=== PATIENT | female | born 1980 | race Caucasian/White ===

== ENCOUNTER 2016-08-11 12:57 | Outpatient (CLI) | payer OTHER ==
--- NOTE | 2016-08-11 14:06 | DIAGNOSTIC IMAGING REPORT ---
PROCEDURE: US OB 1ST TRIMESTER W/TRANSVAG INDICATION: DATING TECHNIQUE: Weir scale, color, and spectral Doppler transabdominal sonographic images of the first trimester gravid uterus were obtained. COMPARISON: None. FINDINGS: TRANSABDOMINAL SCANS: The gravid uterus is anteverted in position and contains a fundal gestational sac which measures 2.3 cm and corresponds to 7 weeks and 4 days No perigestational hemorrhage. The cervix is closed. A pole with an average crown-rump length of 1.1 cm which corresponds to 7 weeks and 1 day is present. There is detectable cardiac activity in the fetus in a rate of 115 beats per minute. A yolk sac was visible. Maternal ovaries appear normal with a corpus luteum cyst visualized left ovary. No free pelvic fluid. IMPRESSION: 1. Single living intrauterine with gestational age of 7 weeks and 4 days and estimated due date of 03/26/2017 2. Closed cervix and no perigestational hemorrhage.
== END 2016-08-11 23:00 ==
LOC: US SRH 12:57
DX: Z34.01 Encounter for supervision of normal first pregnancy, first trimester (principal); Z3A.01 Less than 8 weeks gestation of pregnancy

== ENCOUNTER 2016-08-20 14:33 | Outpatient (CLI) | payer OTHER ==
--- NOTE | 2016-08-20 16:13 | DIAGNOSTIC IMAGING REPORT ---
PROCEDURE: US OB 1ST TRIMESTER W/TRANSVAG INDICATION: VIABILITY TECHNIQUE: Weir scale, color, and spectral Doppler transabdominal sonographic images of the first trimester gravid uterus were obtained. COMPARISON: OB ultrasound 08/11/1969 FINDINGS: TRANSABDOMINAL SCANS: The gravid uterus is anteverted in position and contains a fundal gestational sac with a moderate residual response. There is an anterior and lower uterine segment perigestational bleed that measures 2.6 x 1.9 cm. There is also a fundal perigestational bleed that measures 2.4 x 2.2 cm. The cervix is closed. A pole with an average crown-rump length of 2.1 cm is present. There is detectable cardiac activity in the fetus in a rate of 150 beats per minute. Maternal ovaries appear normal with a corpus luteum cyst visualized left ovary. No free pelvic fluid. IMPRESSION: 1. Single living intrauterine with gestational age of 8 weeks and 5 days and estimated due date of 03/27/2017 2. Anterior and lower uterine segment perigestational bleed that measures 2.6 x 1.9 cm. 3. Fundal perigestational bleed that measures 2.4 x 2.2 cm.
== END 2016-08-20 23:00 ==
LOC: US SRH 14:33
DX: Z34.91 Encounter for supervision of normal pregnancy, unspecified, first trimester (principal); Z3A.08 8 weeks gestation of pregnancy

== ENCOUNTER 2016-09-05 20:27 | Emergency (ER) | payer OTHER ==
--- NOTE | 2016-09-05 22:20 | ED CLINICAL REPORT ---
Clinical Report - Physicians/Mid Levels [facility] [address] [place] [address] 09/05/2016 20:28 Patient: EVANS DOMINGO Time Seen: 20:43; initial patient contact, initial documentation, patient care assumed. Arrived- By private vehicle. Historian- patient. HISTORY OF PRESENT ILLNESS Chief Complaint: PELVIC PAIN. This started yesterday, still present and now gone (bleeding gone, still has cramps). The symptoms are described as mild. The patient has had moderate, crampy pelvic pain, described as "pain", with vaginal bleeding. She has had abnormal bleeding described as spotting. No abdominal pain, vaginal pain, low back pain, flank pain or vaginal discharge. No vaginal itching, pain with urination, urinary frequency, urgency of urination or hematuria. Sexually active. Does not use control measures. Currently . G 2. P 1. Receiving care. Similar symptoms previously: Once, worse. ( had bleeding during with other ). Recent medical care: The patient was seen recently in a clinic. ( saw automotive general manager, everything ok so far, and US was normal). REVIEW OF SYSTEMS No nausea, vomiting, diarrhea, fever or difficulty breathing. No chest pain. All systems otherwise negative, except as recorded above. PAST HISTORY Negative. SOCIAL HISTORY Heavy tobacco smoker. Occasional alcohol use. No drug use. No recent travel. Is a local resident. ADDITIONAL NOTES The nursing notes have been reviewed with agreement regarding the chief complaint, HPI, ROS, PMH and patient medications and allergies. PHYSICAL EXAM Vital Signs: 09/05/2016 20:41 BP: 133/85. HR: 97. RR: 16. O2 saturation: 100%. Temp: 97.8 F. Have been reviewed as normal and appear to be correct. Appearance: Alert. Oriented X3. No acute distress. HEENT: Normal external inspection. ENT: Pharynx normal. Neck: Neck supple. CVS: Heart sounds normal. Respiratory: No respiratory distress. Breath sounds normal. Chest nontender. Abdomen: Soft and nontender. Bowel sounds normal. No organomegaly. No mass. Back: Normal external inspection. : External inspection normal. Speculum exam normal. Bimanual exam normal. Skin: Skin warm and dry. Normal skin color. No rash. Normal skin turgor. Extremities: Extremities nontender. No lower extremity edema. Neuro: Oriented X 3. Mood/affect normal. No motor deficit. No sensory deficit. LABS, X-RAYS, AND EKG Pelvic Sonogram: A single gestation intrauterine (11w1d) is present. Single focus of cardiac activity present (150's). An ovarian cyst is present. No acute disease. verbal report by US Castro. Interpretation time: 22:16. Laboratory Tests: UA-Culture if indicated: (JOANIE: 09/05/2016 20:40) ( MsgRcvd 09/05/2016 21:30) Final results Test Result Flag Units (Reference) URINE COLOR YELLOW URINE APPEARANCE CLEAR URINE GLUCOSE NEGATIVE (NEGATIVE) URINE BILIRUBIN NEGATIVE (NEGATIVE) URINE KETONE TRACE (NEGATIVE) URINE SPECIFIC GRAVITY >= 1.030 (1.010-1.030) URINE PH 6.0 (5.0-8.0) URINE PROTEIN NEGATIVE (NEGATIVE) URINE UROBILINOGEN 0.2 EU/dL (0.2-1.0) URINE NITRITE POSITIVE (NEGATIVE) URINE BLOOD TRACE-INTACT (NEGATIVE) URINE LEUK ESTERASE NEGATIVE (NEGATIVE) URINE RBC 0-1 rbc/hpf (0-1) URINE WBC 0-1 wbc/hpf (0-1) URINE EPITHELIAL CELLS 1-3 EPI/hpf (0-5) URINE BACTERIA FEW (1+) (NONE SEEN) URINE COMMENT CULTURE INDICATED URINE CULTURES ARE SET-UP BASED ON THE FOLLOWING CRITERIA:POSITIVE NITRITEPOSITIVE LEUKOCYTE ESTERASEGREATER THAN 10 WHITE BLOOD CELLSMODERATE (2+) OR GREATER BACTERIA CBC w Diff: (JOANIE: 09/05/2016 21:12) ( MsgRcvd 09/05/2016 21:25) Final results Test Result Flag Units (Reference) WHITE BLOOD COUNT 11.4 K/uL (4.5-11.5) RED BLOOD COUNT 4.38 M/uL (4.00-5.20) HEMOGLOBIN 13.4 gm/dL (12.0-16.0) HEMATOCRIT 40.4 % (36.0-46.0) MEAN CELL VOLUME 92 fL (80-100) MEAN CORPUSCULAR HGB 31 pg (26-34) MEAN CORPUSCULAR HGB CONC 33 g/dL (31-37) RED CELL DISTRIBUTION WIDTH 12.7 % (11.6-14.8) PLATELET COUNT 256 K/uL (150-400) NEUTROPHIL % 61.3 % (50-75) LYMPH % 30.3 % (25-40) MONO % 7.3 % (3-14) EOSINOPHIL % 0.9 % (0-4) BASOPHIL % 0.2 % (0-2) CMP: (JOANIE: 09/05/2016 21:12) ( MsgRcvd 09/05/2016 21:57) Final results Test Result Flag Units (Reference) GLUCOSE 100 mg/dL (70-110) BUN 8 mg/dL (7-18) CREATININE 0.5 L mg/dL (0.6-1.3) Estimated GFR >60 mL/min Estimated GFR- >60 mL/min Note: Persistent reduction over 3 months in eGFR<60 mL/min/1.73 m2 defines CKD. Patients with eGFR values>=60 mL/min/1.73 m2 may also have CKD if evidence ofpersistent proteinuria. Additional information may be foundat www.kidney.org. SODIUM 141 mmol/L (136-145) POTASSIUM 3.8 mmol/L (3.5-5.1) CHLORIDE 105 mmol/L (98-107) CARBON DIOXIDE 26 mmol/L (21-32) CALCIUM 9.0 mg/dL (8.5-10.1) TOTAL PROTEIN 7.5 g/dL (6.4-8.2) ALBUMIN 3.5 g/dL (3.3-5.0) BILIRUBIN, TOTAL 0.2 mg/dL (0.0-1.0) ALKALINE PHOSPHATASE 58 U/L (46-116) AST (SGOT) 14 L U/L (15-37) ALT (SGPT) 31 U/L (12-78) BETA HCG, QUANTITATIVE 5 mIU/mL REFERENCE RANGE:Adult Males: <2 mIU/mLNon- Females: <6 mIU/mL Females:Approximate Approximate hCGGestational Age Range (mIU/mL) 0-1 week 0-501-2 weeks 40-3002-3 weeks 100-33366-1 weeks 500-35701-9 months 5,000-200,0002-3 months 10,000-100,0002nd trimester 3,000-50,0003rd trimester 1,000-50,000 Type & Rh: (JOANIE: 09/05/2016 21:12) ( MsgRcvd 09/05/2016 21:33) Final results Test Result Flag Units (Reference) PATIENT BLOOD TYPE O Negative . PROGRESS AND PROCEDURES Patient counseled in person regarding the patient's stable condition, test results and diagnosis. 22:17. Differential Diagnosis: I considered vaginitis, vaginal polyps, vaginal lesion, vaginal cancer, vulvar infection, ovarian cysts, pelvic inflammatory disease, endometriosis, uterine fibroids, ectopic , threatened and dysfunctional uterine bleeding as a possible cause of vaginal bleeding in this patient. This is a partial list of diagnoses considered. Above considerations are based on history, physical exam, reassessment, laboratory data and other information. Differential diagnosis was discussed with patient. Disposition: Discharged home in good and improved condition (22:20). Condition: good and stable. CLINICAL IMPRESSION Acute pelvic pain. Dysfunctional uterine bleeding. INSTRUCTIONS Warnings: GENERAL WARNINGS: Return or contact your physician immediately if your condition worsens or changes unexpectedly, if not improving as expected, or if other problems arise. Specifically return if problem worsens. Follow-up: Follow up with your doctor in about one week as scheduled even if well. Summary of care provided to patient and family. Understanding of the discharge instructions verbalized by patient and family. (Electronically signed by Keri Castro A.R.N.P. 09/05/2016 23:51)
--- NOTE | 2016-09-05 22:20 | ED NURSING NOTES ---
Clinical Report - Nurses [facility] [address] [place] [address] 09/05/2016 20:28 Patient: EVANS DOMINGO TRIAGE Triage time 2034. Acuity: LEVEL 3. Chief Complaint: ABDOMINAL CRAMPS and SPOTTING and (pink spotting). Alert. No acute distress. --20:45 Siria Antonio 20:41 09/05/16. BP: 133/85. HR: 97. RR: 16. O2 saturation: 100%. Temp: 97.8 F. Pain level now 09/05. --20:45 Siria Antonio. Weight: 78.2 kg. Height/Length: 65 inches. BMI: 28.7. --20:41 Siria Antonio. Medications None. --20:42 Siria Antonio. Allergies No Known Drug Allergy. --20:43 Siria Antonio. History Arrived by private vehicle. Historian: patient. Accompanied by family. This started yesterday. Treatment ACID CUTTER: (called college director, was advised to go to an ER or stay home and wait it out over the weekend). PAST MEDICAL HX: Last normal menstrual period- June 23. Currently : EDC: Mar 27. In 1st trimester. Has had care in clinic. She has had regular care in a clinic. SOCIAL HX: Heavy tobacco smoker (cigarette)- less than 1 pack per day. Occasional alcohol use. FALL RISK ASSESSMENT: Fall risk assessment completed. No fall risk identified. NUTRITIONAL RISK ASSESSMENT: The nutritional risk assessment revealed no deficiencies. FUNCTIONAL ASSESSMENT: Functional assessment: no impairments noted. LEARNING NEEDS ASSESSMENT: The learning needs assessment revealed no barriers. SKIN INTEGRITY ASSESSMENT: Skin integrity risk assessment completed. No skin integrity risk identified. --20:45 Siria Antonio. Interventions ID band on patient. To treatment room. --20:45 Siria Antonio. PHYSICAL ASSESSMENT Ambulatory to room. Patient gowned. GENERAL / NEURO / PSYCH: Alert. Oriented X 4. Appears in no acute distress. HEENT: Mucous membranes are pink. RESPIRATORY: Respirations not labored. Breath sounds within normal limits. CVS: Normal heart rate and rhythm. Capillary refill less than 2 seconds. GI / : Abdomen soft and nontender. Bowel sounds within normal limits. Scant vaginal bleeding present. EXTREMITIES: No lower extremity edema. SKIN: Skin is warm and dry. --20:46 Siria Antonio. NURSING PROGRESS NOTES Head of bed elevated. Reassurance given. Patient ID band checked for patient name and birthdate: patient confirmed. Instructions provided to collect clean catch urine and patient verbalized understanding. Clean catch urine collected; sample sent to lab for urinalysis and culture. Specimen labeled in the presence of the patient. Call light placed in reach. Bed placed in lowest position. Brakes of bed on. Patient ready for evaluation- chart flagged. --20:47 Siria Antonio Patient ID band checked for patient name and birthdate: patient confirmed. Blood samples drawn from the left antecubital space with 23g butterfly by tech ; labeled in presence of the patient and sent to lab: rainbow set. --21:16 Jhonny Vanegas, Tech1 PELVIC EXAM: Pelvic exam performed by FRAUD INVESTIGATOR. Assisted by one nurse (Siria Barry). Preparation: pelvic tray. Procedure: speculum and bimanual exam. Status post-procedure: she was stable. Total time of assist / procedure: 15 minutes. --21:31 Siria Antonio ( FHT were heard). HEART TONES: heart tones present to the right lower quadrant (unable to hear long enough to count but very strong and sound appropriate rate, Provider aware). --21:32 Siria Antonio. DISPOSITION / DISCHARGE Departure time: 2229. Condition at departure: improved and stable. No learning barriers present. Discharge instructions provided and reviewed with the patient and family. Patient verbalized understanding. Written instructions provided in Faroese. The patient was discharged by the nurse practitioner. She was discharged home and accompanied by spouse. She left the Emergency Department ambulatory and via private vehicle. Spouse driving. --22:29 Siria Antonio 22:28 09/05/16. BP: 116/69. HR: 89. RR: 16. O2 saturation: 99%. Pain level now 05/08. --22:29 Siria Antonio. Locked/Released at 09/05/2016 22:29 by Siria Antonio,
--- NOTE | 2016-09-05 22:20 | ED ORDER SUMMARY ---
..... Patient: EVANS DOMINGO OrderSheet [facility] VisitID: [id number] [address] [place] [address] 36y, F Registration Date/Time: 09/05/2016 ORDER SHEET Weight: 78.2 kg Allergies: No Known Drug Allergy GENERAL ORDERS: UA-Culture if indicated Urgent (20:47 09/05/2016 EBemir per protocol) (20:48 CHagerty ER Ice Skating Coach) US OB 1st Trimester w Transvag (?) Urgent (20:55 09/05/2016 HBivens A.R.N.P.) (Ack 20:57 CHagerty ER Ice Skating Coach) (22:23 [facility] Ice Skating Coach) CBC w Diff Urgent (20:56 09/05/2016 HBivens A.R.N.P.) (Ack 20:57 CHagerty ER Ice Skating Coach) (21:12 EBonham) CMP Urgent (20:56 09/05/2016 HBivens A.R.N.P.) (Ack 20:57 CHagerty ER Ice Skating Coach) (21:12 EBonham) Type & Rh Urgent (20:56 09/05/2016 HBivens A.R.N.P.) (Ack 20:57 CHagerty ER Ice Skating Coach) (21:13 EBonham) Serum Quantitative Urgent (20:56 09/05/2016 HBivens A.R.N.P.) (Ack 20:57 CHagerty ER Ice Skating Coach) (21:[facility] Pelvic Exam Setup (20:56 09/05/2016 HBivens A.R.N.P.) (21:29 EBonham) MEDICATION ORDERS: IV FLUIDS: ORDER SHEET NOTES: [Electronically signed by Siria Antonio (22:29 09/05/2016)] [Electronically signed by Keri Castro A.R.N.P. (23:51 09/05/2016)] [Electronically locked/signed by Siria Antonio (22:29 09/05/2016)]
--- NOTE | 2016-09-05 22:20 | ED NURSING NOTES ---
Clinical Report - Nurses [facility] [address] [place] [address] 09/05/2016 20:28 Patient: EVANS DOMINGO TRIAGE Triage time 2034. Acuity: LEVEL 3. Chief Complaint: ABDOMINAL CRAMPS and SPOTTING and (pink spotting). Alert. No acute distress. --20:45 Siria Antonio 20:41 09/05/16. BP: 133/85. HR: 97. RR: 16. O2 saturation: 100%. Temp: 97.8 F. Pain level now 09/05. --20:45 Siria Antonio. Weight: 78.2 kg. Height/Length: 65 inches. BMI: 28.7. --20:41 Siria Antonio. Medications None. --20:42 Siria Antonio. Allergies No Known Drug Allergy. --20:43 Siria Antonio. History Arrived by private vehicle. Historian: patient. Accompanied by family. This started yesterday. Treatment DIRECTOR TRIAL: (called billing typist, was advised to go to an ER or stay home and wait it out over the weekend). PAST MEDICAL HX: Last normal menstrual period- June 23. Currently : EDC: Mar 27. In 1st trimester. Has had care in clinic. She has had regular care in a clinic. SOCIAL HX: Heavy tobacco smoker (cigarette)- less than 1 pack per day. Occasional alcohol use. FALL RISK ASSESSMENT: Fall risk assessment completed. No fall risk identified. NUTRITIONAL RISK ASSESSMENT: The nutritional risk assessment revealed no deficiencies. FUNCTIONAL ASSESSMENT: Functional assessment: no impairments noted. LEARNING NEEDS ASSESSMENT: The learning needs assessment revealed no barriers. SKIN INTEGRITY ASSESSMENT: Skin integrity risk assessment completed. No skin integrity risk identified. --20:45 Siria Antonio. Interventions ID band on patient. To treatment room. --20:45 Siria Antonio. PHYSICAL ASSESSMENT Ambulatory to room. Patient gowned. GENERAL / NEURO / PSYCH: Alert. Oriented X 4. Appears in no acute distress. HEENT: Mucous membranes are pink. RESPIRATORY: Respirations not labored. Breath sounds within normal limits. CVS: Normal heart rate and rhythm. Capillary refill less than 2 seconds. GI / : Abdomen soft and nontender. Bowel sounds within normal limits. Scant vaginal bleeding present. EXTREMITIES: No lower extremity edema. SKIN: Skin is warm and dry. --20:46 Siria Antonio. NURSING PROGRESS NOTES Head of bed elevated. Reassurance given. Patient ID band checked for patient name and birthdate: patient confirmed. Instructions provided to collect clean catch urine and patient verbalized understanding. Clean catch urine collected; sample sent to lab for urinalysis and culture. Specimen labeled in the presence of the patient. Call light placed in reach. Bed placed in lowest position. Brakes of bed on. Patient ready for evaluation- chart flagged. --20:47 Siria Antonio Patient ID band checked for patient name and birthdate: patient confirmed. Blood samples drawn from the left antecubital space with 23g butterfly by tech ; labeled in presence of the patient and sent to lab: rainbow set. --21:16 Jhonny Vanegas, Tech1 PELVIC EXAM: Pelvic exam performed by BROADCAST OPERATIONS DIRECTOR. Assisted by one nurse (Siria Barry). Preparation: pelvic tray. Procedure: speculum and bimanual exam. Status post-procedure: she was stable. Total time of assist / procedure: 15 minutes. --21:31 Siria Antonio ( FHT were heard). HEART TONES: heart tones present to the right lower quadrant (unable to hear long enough to count but very strong and sound appropriate rate, Provider aware). --21:32 Siria Antonio. DISPOSITION / DISCHARGE Departure time: 2229. Condition at departure: improved and stable. No learning barriers present. Discharge instructions provided and reviewed with the patient and family. Patient verbalized understanding. Written instructions provided in Icelandic. The patient was discharged by the nurse practitioner. She was discharged home and accompanied by spouse. She left the Emergency Department ambulatory and via private vehicle. Spouse driving. --22:29 Siria Antonio 22:28 09/05/16. BP: 116/69. HR: 89. RR: 16. O2 saturation: 99%. Pain level now 05/08. --22:29 Siria Antonio. Locked/Released at 09/05/2016 22:29 by Siria Antonio,
--- NOTE | 2016-09-05 22:20 | ED ORDER SUMMARY ---
..... Patient: EVANS DOMINGO OrderSheet [facility] VisitID: [id number] [address] [place] [address] 36y, F Registration Date/Time: 09/05/2016 ORDER SHEET Weight: 78.2 kg Allergies: No Known Drug Allergy GENERAL ORDERS: UA-Culture if indicated Urgent (20:47 09/05/2016 EBemir per protocol) (20:48 CHagerty ER Drawer Hardware Worker) US OB 1st Trimester w Transvag (?) Urgent (20:55 09/05/2016 HBivens A.R.N.P.) (Ack 20:57 [facility] Drawer Hardware Worker) (22:23 [facility] Drawer Hardware Worker) CBC w Diff Urgent (20:56 09/05/2016 HBivens A.R.N.P.) (Ack 20:57 [facility]ty ER Drawer Hardware Worker) (21:12 EBonham) CMP Urgent (20:56 09/05/2016 HBivens A.R.N.P.) (Ack 20:57 [facility]ty ER Drawer Hardware Worker) (21:12 EBonham) Type & Rh Urgent (20:56 09/05/2016 HBivens A.R.N.P.) (Ack 20:57 [facility] ER Drawer Hardware Worker) (21:13 EBonham) Serum Quantitative Urgent (20:56 09/05/2016 HBivens A.R.N.P.) (Ack 20:57 [facility]agerty ER Drawer Hardware Worker) (21:13 [facility] Pelvic Exam Setup (20:56 09/05/2016 HBivens A.R.N.P.) (21:29 EBonham) MEDICATION ORDERS: IV FLUIDS: ORDER SHEET NOTES: [Electronically signed by Siria Antonio (22:29 09/05/2016)] [Electronically signed by Keri Castro A.R.N.P. (23:51 09/05/2016)] [Electronically locked/signed by Siria Antonio (22:29 09/05/2016)]
--- NOTE | 2016-09-05 23:00 | DIAGNOSTIC IMAGING REPORT ---
PROCEDURE: US OB 1ST TRIMESTER W/TRANSVAG INDICATION: PAIN TECHNIQUE: Weir scale, color, and spectral Doppler transabdominal and endovaginal sonographic images of the first trimester gravid uterus were obtained. COMPARISON: 08/20/2016 and 08/11/2016 FINDINGS: TRANSABDOMINAL SCANS: The gravid uterus is anteverted, slightly retroflexed in position and contains a fundal gestational sac with a moderate decidual response. No perigestational hemorrhage. The cervix is closed. parts are identified. Maternal ovaries not well seen by transabdominal imaging. TRANSVAGINAL SCANS: A pole is present with an average crown-rump length of 42.3 mm which corresponds to a 49-ohde-8-day gestation. Yolk sac was identified. Tiny, inactive implantation bleed present in the lower uterine segment measuring 6 mm in thickness. The cervix is closed. There is detectable cardiac activity at a rate of 150 beats per minute. Maternal left ovary contains a corpus luteum measuring 2.3 cm. Normal vascularity. The right ovary is not identified. No suspicious right adnexal mass. No free pelvic fluid. IMPRESSION: 1. Single living intrauterine with gestational age of 11 weeks 1 day and estimated due date of 03/26/2017. This is in good agreement with the initial ultrasounds. 2. Tiny, inactive implantation bleed but closed cervix.
--- NOTE | 2016-09-05 23:51 | ED DISCHARGE INSTRUCTIONS ---
Patient: EVANS DOMINGO General Instructions [facility] VisitID: [id number] [place] [address] 36y, F Registration Date/Time: 09/05/2016 Acute pelvic pain. Dysfunctional uterine bleeding. INSTRUCTIONS Warnings: GENERAL WARNINGS: Return or contact your physician immediately if your condition worsens or changes unexpectedly, if not improving as expected, or if other problems arise. Specifically return if problem worsens. Follow-up: Follow up with your doctor in about one week as scheduled even if well. Summary of care provided to patient and family. Understanding of the discharge instructions verbalized by patient and family. ADDITIONAL INFORMATION Irregular Vaginal Bleeding This is a condition in which bleeding occurs at unexpected times of the month. The bleeding may be heavier or maintenance and custodian supervisor than usual. Heavy bleeding may lead to anemia. If severe enough, anemia may cause you to look pale and feel weak or fatigued. You might have shortness of breath even with little exertion. The female hormones produced in your body every month may be out of balance. This imbalance leads to bleeding. Causes could include an ovarian cyst, emotional stress, pelvic infection. Failure to ovulate during your last cycle may also cause this problem. Home Care: If bleeding is heavy, rest and avoid heavy exertion. You may use acetaminophen (Tylenol) or ibuprofen (Motrin, Advil) to control pain, unless another pain medicine was prescribed. [NOTE: If you have chronic liver or kidney disease or ever had a stomach ulcer or GI bleeding, talk with your doctor before using these medicines.] Iron supplements may be prescribed for anemia. It takes about 4-6 weeks for the iron to correct the anemia. Take the medicine as directed. See your doctor for a repeat blood test after you finish the iron treatment. If hormones were prescribed to control your bleeding, take them exactly as directed. If you were prescribed a medicine called Provera (medroxyprogesterone), the bleeding should stop while you are taking it. Another period will start a few days after you finish the medicine. Follow Up with your doctor, or as advised, within the next 1-2 days if heavy bleeding continues. Otherwise, follow up within the next 1-2 weeks. Get Prompt Medical Attention if any of the following occur: Bleeding becomes heavy (soaking one pad an hour for three hours) Fever of 100.4F (38C) or higher, or as directed by your healthcare provider Increase in abdominal pain Weakness, dizziness or fainting Pelvic Pain, Uncertain Cause Based on your visit today, the exact cause of your pelvic pain is not certain. But your condition does not appear to be serious at this time. However, the signs of a serious problem may take more time to appear. Therefore, it is important for you to watch for any new symptoms or worsening of your condition. Home Care: Rest until you are feeling better. Avoid sexual intercourse until your pain goes away. You may use acetaminophen (Tylenol) or ibuprofen (Motrin, Advil) to control pain, unless another medicine was prescribed. [NOTE: If you have chronic liver or kidney disease or ever had a stomach ulcer or GI bleeding, talk with your doctor before using these medicines.] Follow Up with your doctor as advised. If a culture test was taken, call in two days for the results. If the culture is positive, you will be given more advice at that time. Otherwise, follow-up with your doctor or this facility as instructed. Get Prompt Medical Attention if any of the following occur: Fever of 100.4F (38C) or higher, or as directed by your healthcare provider Vaginal discharge Worsening pain Weakness, dizziness or fainting Unexpected vaginal bleeding or passage of fried or white tissue from the vagina Pain that moves to the right lower abdomen Abdominal Pain And Early [R/O Sab, Ectopic: Serial Q-Hcg's] Based on your visit today, we know you are . But, the exact cause of your abdominal (stomach) pain is not certain. Some pain or bleeding may occur in a NORMAL . But pain may also be a sign of a MISCARRIAGE or an ECTOPIC (baby growing in the Fallopian tube instead of the uterus). An ectopic is a very serious condition. It can lead to severe internal bleeding and even . Therefore, further tests are needed to find out the cause of your symptoms. These may include: ULTRASOUND - A pelvic ultrasound can detect a normal as early as 4-5 weeks of age. But, if the ultrasound test does not show the baby inside the uterus, it means that i) you have a normal less than 4 weeks old, ii) you are having or recently had a miscarriage or iii) you have an ectopic . QUANTITATIVE HCG - a test that measures the amount of hormone in your blood. Comparing today's test result to a repeat test in 48 hours shows whether or not you have a normal . LAPAROSCOPY - a surgical procedure where a tube with a light is placed inside the abdomen to look directly at the pelvic organs. This is used when it is not safe to wait 48 hours for blood test results. Important If you do have an ectopic , there is a small chance that the growing fetus can tear the Fallopian tube and cause severe internal bleeding. If this happens, there may be SUDDEN SEVERE LOWER ABDOMINAL PAIN, VAGINAL BLEEDING, WEAKNESS, DIZZINESS and sometimes FAINTING. If any of these symptoms occur: CALL AN AMBULANCE (call 911) or return immediately to the hospital. DO NOT DRIVE YOURSELF. DO NOT GO TO YOUR DOCTOR'S OFFICE OR TO A CLINIC. Home Care: Rest until your next exam. Do not perform any strenuous activity. Eat a light diet with foods that are easy to digest. Avoid sexual intercourse until all symptoms have gone away and you are cleared by your doctor. Follow Up with your doctor or this facility as advised for repeat blood testing. [NOTE: If you had an X-ray or ultrasound test, it will be reviewed by a specialist. You will be notified of any new findings that may affect your care.] Get Prompt Medical Attention if any of the following occur: Sudden or gradual worsening abdominal pain Fainting, dizziness or weakness when standing Heavy vaginal bleeding (soaking one pad an hour for three hours) Vaginal bleeding for more than 5 days Repeated vomiting or diarrhea Pain that moves to the right lower abdomen (stomach) Blood in vomit or bowel movements (dark red or black color) Fever of 100.4F (38C) or higher, or as directed by your healthcare provider Abdominal Pain,Possible Appendicitis [Repeat Exam, Female] Based on your visit today, the exact cause of your abdominal (stomach) pain is not certain. However, you do have some of the early signs of APPENDICITIS. Early in an appendix infection the symptoms can be similar to a simple "stomach ache" or "stomach flu". Therefore, the diagnosis can be hard to make. Since an appendix infection is a serious condition, it is important to know if this is the cause of your symptoms. WAITING for more time to pass and repeating the exam is the best way to find out whether you have appendicitis. Within the next 12-24 hours the cause of your stomach pain should become clear. It is important for you to watch for any new symptoms or worsening of your condition. (See below). Home Care: Rest until your next exam. No strenuous activities. Eat a diet low in fiber (called a low-residue diet). Foods allowed include refined breads, white rice, fruit and vegetable juices without pulp, tender meats. These foods will pass more easily through the intestine. Avoid whole-grain foods, whole fruits and vegetables, meats, seeds and nuts, fried or fatty foods, dairy, alcohol and spicy foods until your symptoms go away. In some cases, you may be asked not to eat or drink anything until you are re-examined. Return for another exam exactly as directed. Follow Up with your doctor or this facility as directed. Get Prompt Medical Attention if any of the following occur: Pain gets worse or moves to the right lower abdomen New or worsening vomiting or diarrhea Swelling of the abdomen Unable to pass stool for more than three days Fever of 100.4F (38C) or higher, or as directed by your healthcare provider Blood in vomit or bowel movements (dark red or black color) Weakness, dizziness or fainting Unexpected vaginal bleeding You have been given the following additional information: Dysfunctional Uterine Bleeding Pelvic Pain, Unknown Cause Abdominal Pain, Early Abdominal Pain, Possible Appendicitis (Female) (Electronically signed by Keri Castro A.R.N.P. 09/05/2016 23:51)
--- NOTE | 2016-09-05 23:51 | ED MED RECONCILIATION SUMMARY ---
Patient: EVANS DOMINGO Medication Reconciliation Report [facility] VisitID: [id number] [address] [place] [address] 36y, F Registration Date/Time: 09/05/2016 Weight: 78.2 kg Height/Length: 65 in. BMI: 28.7 ALLERGIES: No Known Drug Allergy The patient's Home Medications are listed below: NONE. The source(s) of the original Home Medication information: Not obtained. The following Medications were given to the patient in the Emergency Department: None. The following Medications were prescribed to the patient: None.
--- NOTE | 2016-09-05 23:51 | ED MED RECONCILIATION SUMMARY ---
Patient: EVANS DOMINGO Medication Reconciliation Report [facility] VisitID: [id number] [address] [place] [place] [address] 36y, F Registration Date/Time: 09/05/2016 Weight: 78.2 kg Height/Length: 65 in. BMI: 28.7 ALLERGIES: No Known Drug Allergy The patient's Home Medications are listed below: NONE. The source(s) of the original Home Medication information: Not obtained. The following Medications were given to the patient in the Emergency Department: None. The following Medications were prescribed to the patient: None.
--- NOTE | 2016-09-05 23:51 | ED MAR SUMMARY ---
..... Medication Administration Record [facility] [address] [place], [place] [id number] Patient: EVANS DOMINGO Visit ID: [id number] 36y, F Weight: 78.2 kg Height/Length: 65 in BMI: 28.7 ALLERGIES: No Known Drug Allergy
--- NOTE | 2016-09-05 23:51 | ED MAR SUMMARY ---
..... Medication Administration Record [facility] [address] [place] [id number] Patient: EVANS DOMINGO Visit ID: [id number] 36y, F Weight: 78.2 kg Height/Length: 65 in BMI: 28.7 ALLERGIES: No Known Drug Allergy
== END 2016-09-05 22:30 | disposition home or self-care (01) ==
LOC: ED SRH 20:27
DX: O46.91 Antepartum hemorrhage, unspecified, first trimester (principal); R10.2 Pelvic and perineal pain; Z3A.11 11 weeks gestation of pregnancy; Z72.0 Tobacco use
CPT/HCPCS: 90001; 90004; 90100; 90148; 90155; 90197; 90469; 95059